=== PATIENT | female | born 1960 | race Caucasian/White ===

== ENCOUNTER → 2019-09-07 | Emergency (ER) | payer MEDICARE ==
[~2019-09-07] MED LIST: ASPIR 8181 MG PO; CRESTOR5 MG PO; GLIPIZIDE10 MG PO; ZESTRIL5 MG PO
--- NOTE | 2019-09-08 07:55 | EKG ---
[facility] [address] [facility] [address] [place] [address] Signed Normal sinus rhythm Pulmonary disease pattern Left anterior fascicular block Left ventricular hypertrophy with QRS widening and repolarization abnormality Cannot rule out Septal infarct , age undetermined Abnormal ECG No previous ECGs available Confirmed by ARMANDO PIKE MD ([id number] on 09/08/2019 7:55:34 AM Electronically Signed By: ARMANDO PIKE MD 09/08/19 [id number] PATIENT NAME: KRISTIN LOFTON Electrocardiogram DATE OF : 60 PHYSICIAN: ARMANDO PIKE MD REPORT #: [id number] REPORT IS CONFIDENTIAL AND NOT TO BE RELEASED WITHOUT AUTHORIZATION
== END ==
LOC: ED 21:49
DX: I21.4 Non-ST elevation (NSTEMI) myocardial infarction (principal); E11.9 Type 2 diabetes mellitus without complications; I50.9 Heart failure, unspecified; Z87.01 Personal history of pneumonia (recurrent); Z91.040 Latex allergy status; Z79.899 Other long term (current) drug therapy; Z79.82 Long term (current) use of aspirin
CPT/HCPCS: 36415; 71045; 71260; 80053; 83735; 83880; 84484; 85025; 85379; 93005; 93010; 96374; 99285-25; J1650; J1940; Q9967